=== PATIENT | female | born 1970 | race African-American/Black ===

== ENCOUNTER 2016-07-15 11:27 | Emergency (ER) | payer BC ==
[~2016-07-15] VITALS: Ht 154.9 cm; Wt 73.9 kg
[2016-07-15 11:56] VITALS: BP 129/84
--- NOTE | 2016-07-15 13:42 | RAD ---
Indication: Pain and tenderness to left shoulder. No known injury. Technique: 3 views of the left shoulder are submitted for review. No comparison is available. Findings: There is no fracture or dislocation. There is no osseous lesion. Impression: Negative for fracture.
[2016-07-15] MEDS ORDERED: METH-37 PO (14:23)
[2016-07-15] MEDS ORDERED: HYDR-971 PO (14:23)
--- NOTE | 2016-07-15 14:23 | PHYS DOC ---
Past Medical History Past Medical History: Asthma, GERD, IBS, Pneumonia, Other Additional Past Medical Histor: hypokalemia Past Surgical History: Cholecystectomy, Hysterectomy, Other Additional Past Surgical Histo: lt.acl,uterine ablation,ex-lap x2,lumpectomy Additional Information: nonsmoker Alcohol Use: Rarely Drug Use: None Adult General Chief Complaint Chief Complaint: SHOULDER INJURY HPI HPI Patient is a 45 year old female who presents with left shoulder pain for 2 weeks. Her pain started after leaning to the left side while sitting in the car for an extended period of time. She states the pain gets worse throughout the day, is worse at night, and is better in the morning. She has intermittent numbness and tingling in the fingers of the left hand. She denies any chest pain , shortness of breath, or neck pain. She has been taking Aleve without relief of her pain. She is right-hand dominant. Her PCP is Dr. Shannon Mills. Review of Systems Review of Systems Constitutional: Denies fever or chills. [] Respiratory: Denies cough or shortness of breath. [] Cardiovascular: Denies chest pain, palpitations or edema. [] Musculoskeletal: Denies back pain. Reports left shoulder pain. Integument: Denies rash or skin lesions. [] Neurologic: Denies headache, focal weakness. Reports intermittent paresthesias in the left hand. Allergies Allergies Allergies Coded Allergies Type Severity Reaction Last Updated Verified Iodinated Contrast Media - IV Dye Allergy Severe 01/17/14 Yes Sulfa (Sulfonamide Antibiotics) Allergy Severe 01/17/14 Yes shellfish derived Allergy Severe 01/17/14 Yes Erythromycin Base Allergy Intermediate 01/17/14 Yes Penicillins Allergy Intermediate 01/17/14 Yes cephalexin Allergy Intermediate 01/17/14 Yes latex Allergy Intermediate 01/17/14 Yes morphine Allergy Intermediate 01/17/14 Yes Physical Exam Physical Exam Constitutional: Well developed, well nourished, no acute distress, non-toxic appearance. [] HENT: Normocephalic, atraumatic, oropharynx moist. [] Eyes: PERRLA, EOMI, conjunctiva normal, no discharge. [] Neck: Normal range of motion, no tenderness, supple, no stridor. [] Cardiovascular: Heart rate regular rhythm, no murmur. [] Lungs & Thorax: Bilateral breath sounds clear to auscultation without wheezes, rales, or rhonchi. [] Skin: Warm, dry, no erythema, no rash. [] Back: No midline tenderness, no CVA tenderness. [] Extremities: Left A/C joint tenderness, decreased abduction of the left shoulder to 90 degrees, no edema. 2+ radial and ulnar pulses. Less than 2 second capillary refill in the fingers. Light touch sensation intact in the fingers. Equal equipment manager strength bilaterally. FROM without tenderness of the elbow, wrist, and hand. Neurologic: Alert and oriented X 3, normal motor function, normal sensory function, no focal deficits noted. [] Psychologic: Affect normal, judgement normal, mood normal. [] Current Patient Data Vital Signs Vital Signs Date Time Temp Pulse Resp B/P Pulse Ox O2 Delivery O2 Flow Rate FiO2 07/15/16 11:56 98 18 129/84 98 Room Air 98.0 EKG EKG [] Radiology/Procedures Radiology/Procedures REASON: tenderness over A/C joint PROCEDURE: SHOULDER 2+V LEFT Indication: Pain and tenderness to left shoulder. No known injury. Technique: 3 views of the left shoulder are submitted for review. No comparison is available. Findings: There is no fracture or dislocation. There is no osseous lesion. Impression: Negative for fracture. Course & Med Decision Making Course & Med Decision Making Pertinent Labs and Imaging studies reviewed. (See chart for details) Patient presents with left shoulder pain for 2 weeks. She does not have any chest pain or shortness of breath with the pain. Pain is worse with movement of the arm. On exam, she is tender over the A/C joint and has decreased range of motion. X-ray does not show any acute abnormalities. She is discharged home with prescription for [place] and Robaxin. She is given contact information for orthopedics for follow-up. Return precautions were discussed. She verbalizes understanding and agrees with plan. Dragon Disclaimer Dragon Disclaimer This electronic medical record was generated, in whole or in part, using a voice recognition dictation system. Departure Departure Impression: Primary Impression: Shoulder pain, left Disposition: 01 HOME, SELF-CARE Condition: STABLE Referrals: SHANNON MILLS DO (PCP) LUCIA DOHERTY MD Patient Instructions: Shoulder Pain, [id number] Additional Instructions: Your x-ray did not show any abnormalities. Please take the prescribed medications as directed. Do not drive or operate heavy machinery while taking these medications. Please follow-up with the orthopedic doctor listed below if your pain continues. Return to the emergency department if you have any new or concerning symptoms. Scripts Methocarbamol (Robaxin)500 Mg [id number] Mg PO QID #20 TAB Prov:DORA CAO 07/15/16 Hydrocodone/Apap 5-325 ([place] 5-325 Tablet)1 Each Tablet1 Tab PO PRN Q6HRS PRN PAIN #20 TAB Prov:DORA CAO 07/15/16 Problem Qualifiers Primary Impression: Shoulder pain, left Chronicity: acute Qualified Code: M25.512 - Pain in left shoulder DORA CAO Jul 15, 2016 14:23
== END 2016-07-15 14:30 | disposition home or self-care (01) ==
LOC: ER 11:27
DX: M25.512 Pain in left shoulder (principal); J45.909 Unspecified asthma, uncomplicated; Z88.0 Allergy status to penicillin; Z88.2 Allergy status to sulfonamides; Z88.1 Allergy status to other antibiotic agents; Z88.5 Allergy status to narcotic agent; Z91.041 Radiographic dye allergy status; Z91.040 Latex allergy status; Z91.013 Allergy to seafood
CPT/HCPCS: 73030; 99284

== ENCOUNTER 2017-04-01 11:00 | Emergency (ER) | payer BC ==
[~2017-04-01] VITALS: Ht 154.9 cm; Wt 71.7 kg
[~2017-04-01 11:00] MED LIST: HYDR-971 PO; METH-37 PO
[2017-04-01 11:33] LABS: BILIRUBIN,URINE NEGATIVE (NEG); GLUCOSE,URINE NEGATIVE (NEG); NITRITE,URINE NEGATIVE (NEG); PROTEIN,URINE 100 mg/dL (NEG-TRACE); UROBILINOGEN,URINE 0.2 mg/dL (0.2 mg/dL)
--- NOTE | 2017-04-01 11:37 | PHYS DOC ---
Past Medical History Past Medical History: Asthma, GERD, IBS, Pneumonia, Other Additional Past Medical Histor: hypokalemia Past Surgical History: Cholecystectomy, Hysterectomy, Other Additional Past Surgical Histo: lt.acl,uterine ablation,ex-lap x2,lumpectomy Alcohol Use: Rarely Drug Use: None Adult General Chief Complaint Chief Complaint: abdominal pain, nausea and vomiting HPI HPI Patient is a 46 year old female who presents with right-sided abdominal pain, intermittent in nature with nausea, vomiting, diarrhea for the last 2-1/2 weeks. Patient denies any known sick contacts, no fevers. Patient has a history of sphincter of OD dysfunction has had similar symptoms in the past. She contacted her GI doctor, Dr. Garduno recommended she come to the ER for evaluation. Patient's had a cholecystectomy. Her pain is well-controlled at this moment. Review of Systems Review of Systems Constitutional: Denies fever or chills [] Eyes: Denies change in visual acuity, redness, or eye pain [] HENT: Denies nasal congestion or sore throat [] Respiratory: Denies cough or shortness of breath [] Cardiovascular: Denies chest pain GI: Per history of present illness : Denies dysuria or hematuria [] Musculoskeletal: Denies back pain or joint pain [] Integument: Denies rash or skin lesions [] Neurologic: Denies headache, focal weakness or sensory changes [] Current Medications Current Medications Current Medications Medications (Trade) Dose Ordered Sig/Jessy Start Time Stop Time Status Last Admin Dose Admin Ondansetron HCl (Zofran) 4 mg 1X ONCE 04/01/17 11:45 04/01/17 11:46 DC 04/01/17 12:33 4 MG Potassium Chloride (Klor-Con) 40 meq 1X ONCE 04/01/17 12:15 04/01/17 12:17 DC 04/01/17 12:35 40 MEQ Sodium Chloride 1,000 ml @ 1,000 mls/hr 1X ONCE 04/01/17 11:45 04/01/17 12:44 DC 04/01/17 12:32 1,000 MLS/HR Allergies Allergies Allergies Coded Allergies Type Severity Reaction Last Updated Verified Iodinated Contrast- Oral and IV Dye Allergy Severe 04/01/17 Yes Sulfa (Sulfonamide Antibiotics) Allergy Severe 04/01/17 Yes shellfish derived Allergy Severe 04/01/17 Yes Penicillins Allergy Intermediate 04/01/17 Yes cephalexin Allergy Intermediate 04/01/17 Yes erythromycin base Allergy Intermediate 04/01/17 Yes latex Allergy Intermediate 04/01/17 Yes morphine Allergy Intermediate 04/01/17 Yes nitrofurantoin Allergy Unknown 04/01/17 No Physical Exam Physical Exam Constitutional: Well developed, well nourished, no acute distress, non-toxic appearance. [] HENT: Normocephalic, atraumatic, bilateral external ears normal, oropharynx moist, no oral exudates, nose normal. [] Eyes: PERRLA, EOMI, conjunctiva normal, no discharge. [] Neck: Normal range of motion, no tenderness, supple, no stridor. [] Cardiovascular:Heart rate tachy with regular rhythm, no murmur [] Lungs & Thorax: Bilateral breath sounds clear to auscultation [] Abdomen: Bowel sounds normal, soft, no tenderness, no masses, no pulsatile masses. no guarding or peritoneal signs, nondistended Skin: Warm, dry, no erythema, no rash. [] Back: No tenderness, no CVA tenderness. [] Extremities: No tenderness, no cyanosis, no clubbing, ROM intact, no edema. [] Neurologic: Alert and oriented X 3, normal motor function, normal sensory function, no focal deficits noted. [] Psychologic: Affect normal, judgement normal, mood normal. [] Current Patient Data Vital Signs Vital Signs Date Time Temp Pulse Resp B/P (MAP) Pulse Ox O2 Delivery O2 Flow Rate FiO2 04/01/17 13:10 104 20 114/74 (87) 98 Room Air 04/01/17 11:08 98.4 98.4 Lab Values Laboratory Tests Test 04/01/17 11:05 04/01/17 11:39 Urine Collection Type Void Urine Color Yellow Urine Clarity Cloudy Urine pH 6.0 Urine Specific [place] 1.015 Urine Protein 100 mg/dL (NEG-TRACE) Urine Glucose (UA) Negative mg/dL (NEG) Urine Ketones (Stick) Negative mg/dL (NEG) Urine Blood Trace (NEG) Urine Nitrite Negative (NEG) Urine Bilirubin Negative (NEG) Urine Urobilinogen Dipstick 0.2 mg/dL (0.2 mg/dL) Urine Leukocyte Esterase Moderate (NEG) Urine RBC Occ /HPF (0-2) Urine WBC 20-40 /HPF (0-4) Urine Squamous Epithelial Cells Few /LPF Urine Bacteria Few /HPF (0-FEW) Urine Hyaline Casts Occasional /HPF Urine Mucus Slight /LPF White Blood Count 10.6 x10^3/uL (4.0-11.0) Red Blood Count 4.27 x10^6/uL (3.50-5.40) Hemoglobin 12.9 g/dL (12.0-15.5) Hematocrit 37.3 % (36.0-47.0) Mean Corpuscular Volume 87 fL (79-100) Mean Corpuscular Hemoglobin 30 pg (25-35) Mean Corpuscular Hemoglobin Concent 35 g/dL (31-37) Red Cell Distribution Width 13.6 % (11.5-14.5) Platelet Count 467 x10^3/uL (140-400) H Neutrophils (%) (Auto) 59 % (31-73) Lymphocytes (%) (Auto) 33 % (24-48) Monocytes (%) (Auto) 6 % (0-9) Eosinophils (%) (Auto) 2 % (0-3) Basophils (%) (Auto) 1 % (0-3) Neutrophils # (Auto) 6.2 x10^3uL (1.8-7.7) Lymphocytes # (Auto) 3.5 x10^3/uL (1.0-4.8) Monocytes # (Auto) 0.6 x10^3/uL (0.0-1.1) Eosinophils # (Auto) 0.2 x10^3/uL (0.0-0.7) Basophils # (Auto) 0.1 x10^3/uL (0.0-0.2) Sodium Level 140 mmol/L (136-145) Potassium Level 2.8 mmol/L (3.5-5.1) *L Chloride Level 103 mmol/L (98-107) Carbon Dioxide Level 27 mmol/L (21-32) Anion Gap 10 (6-14) Blood Urea Nitrogen 5 mg/dL (7-20) L Creatinine 0.8 mg/dL (0.6-1.0) Estimated GFR (Cockcroft-Gault) 93.9 Glucose Level 98 mg/dL (70-99) Calcium Level 10.0 mg/dL (8.5-10.1) Total Bilirubin 0.3 mg/dL (0.2-1.0) Direct Bilirubin < 0.1 mg/dL (0.0-0.2) Aspartate Amino Transferase (AST) 27 U/L (15-37) Alanine Aminotransferase (ALT) 17 U/L (14-59) Alkaline Phosphatase 83 U/L (46-116) Total Protein 8.2 g/dL (6.4-8.2) Albumin 3.9 g/dL (3.4-5.0) Lipase 138 U/L (73-393) Laboratory Tests 04/01/17 11:39 Laboratory Tests 04/01/17 11:39 EKG EKG [] Radiology/Procedures Radiology/Procedures [] Course & Med Decision Making Course & Med Decision Making Pertinent Labs and Imaging studies reviewed. (See chart for details) Pt declined any pain medication at this moment. Patient was given IV fluids and Zofran while labs and urinalysis obtained. Pt feeling better, ok with plan to dc home. Given PO 40meq KCl in the ED. Has f/u scheduled with Dr. Garduno. Pt to take additional KCl tonight and tomorrow. Return precautions given, RX for zofran odt given. Dragon Disclaimer Dragon Disclaimer This electronic medical record was generated, in whole or in part, using a voice recognition dictation system. Departure Departure Impression: Primary Impression: Nausea & vomiting Disposition: 01 HOME, SELF-CARE Condition: IMPROVED Referrals: SHANNON MILLS DO (PCP) Scripts Ondansetron (ZOFRAN ODT) 4 Mg Tab.rapdis 1 TAB SL Q8HRS Y for NAUSEA, #10 TAB Prov: ALIDA GUALLPA MD 04/01/17 ALIDA GUALLPA MD Apr 01, 2017 11:37
[2017-04-01] MEDS ORDERED: ONDANSETRON PF 4 MG/2 ML VIAL. IV ONE (11:45)
[2017-04-01] MEDS ORDERED: IV NORMAL SALINE 1000ML BAG 1,000 ML IV ONE (11:45)
[2017-04-01 11:47] LABS: RBC,URINE OCC /HPF (0-2)
[2017-04-01 11:48] LABS: BACTERIA,URINE FEW /HPF (0-FEW); SQUAMOUS EPITHELIAL CELL,UR FEW /LPF; WBC,URINE 20-40 /HPF (0-4)
[2017-04-01 11:53] LABS: BASO # 0.1 x10^3/uL (0.0-0.2); BASO % 1 % (0-3); EOS % 2 % (0-3); HEMATOCRIT 37.3 % (36.0-47.0); HEMOGLOBIN 12.9 g/dL (12.0-15.5); LYMPH # 3.5 x10^3/uL (1.0-4.8); LYMPH % 33 % (24-48); MEAN CORPUSCULAR HEMOGLOBIN 30 pg (25-35); MEAN CORPUSCULAR HGB CONC 35 g/dL (31-37); MEAN CORPUSCULAR VOLUME 87 fL (79-100); MONO % 6 % (0-9); NEUT % 59 % (31-73); PLATELET COUNT 467 x10^3/uL (140-400); RED BLOOD COUNT 4.27 x10^6/uL (3.50-5.40); RED CELL DISTRIBUTION WIDTH 13.6 % (11.5-14.5); WHITE BLOOD COUNT 10.6 x10^3/uL (4.0-11.0)
[2017-04-01 12:09] LABS: ALBUMIN 3.9 g/dL (3.4-5.0); ALK PHOS 83 U/L (46-116); ALT (SGPT) 17 U/L (14-59); ANION GAP 10 (6-14); AST (SGOT) 27 U/L (15-37); BLOOD UREA NITROGEN 5 mg/dL (7-20); CARBON DIOXIDE 27 mmol/L (21-32); CHLORIDE 103 mmol/L (98-107); CREATININE 0.8 mg/dL (0.6-1.0); GFR 93.9; GLUCOSE 98 mg/dL (70-99); SODIUM 140 mmol/L (136-145); TOTAL BILIRUBIN 0.3 mg/dL (0.2-1.0); TOTAL PROTEIN 8.2 g/dL (6.4-8.2)
[2017-04-01 12:14] LABS: POTASSIUM 2.8 mmol/L (3.5-5.1)
[2017-04-01] MEDS ORDERED: POTASSIUM CHLORIDE 20 MEQ TABLET.ER. PO ONE (12:15)
[2017-04-01 12:22] LABS: DIRECT BILIRUBIN < 0.1 mg/dL (0.0-0.2)
[2017-04-01 13:10] VITALS: BP 114/74
[2017-04-01] MEDS ORDERED: ONDA4TAB10 SL (13:19)
== END 2017-04-01 13:30 | disposition home or self-care (01) ==
LOC: ER 11:00
DX: R11.2 Nausea with vomiting, unspecified (principal); R10.9 Unspecified abdominal pain; R19.7 Diarrhea, unspecified; J45.909 Unspecified asthma, uncomplicated; K21.9 Gastro-esophageal reflux disease without esophagitis; K58.0 Irritable bowel syndrome with diarrhea; Z90.49 Acquired absence of other specified parts of digestive tract; Z90.710 Acquired absence of both cervix and uterus; Z88.1 Allergy status to other antibiotic agents; Z91.041 Radiographic dye allergy status; Z91.040 Latex allergy status; Z88.5 Allergy status to narcotic agent; Z88.0 Allergy status to penicillin; Z91.013 Allergy to seafood; Z88.2 Allergy status to sulfonamides; Z88.8 Allergy status to other drugs, medicaments and biological substances
CPT/HCPCS: 36415; 80048; 80076; 81001; 83690; 85025; 87086; 96361; 96374; 99284; J2405; J7030; 87186

== ENCOUNTER 2017-04-06 09:26 | Emergency (ER) | payer BC ==
[~2017-04-06] VITALS: Ht 154.9 cm; Wt 71.2 kg
[~2017-04-06 09:26] MED LIST changes: +ONDA4TAB10 SL
[2017-04-06 09:34] VITALS: BP 129/87
[2017-04-06 09:56] LABS: BILIRUBIN,URINE NEGATIVE (NEG); GLUCOSE,URINE NEGATIVE (NEG); NITRITE,URINE NEGATIVE (NEG); PROTEIN,URINE 100 mg/dL (NEG-TRACE); UROBILINOGEN,URINE 0.2 mg/dL (0.2 mg/dL)
--- NOTE | 2017-04-06 10:10 | PHYS DOC ---
Past Medical History Past Medical History: Hypertension, UTI, Other Additional Past Medical Histor: GI ISSUES, HYPOKALEMIA Past Surgical History: Hysterectomy Additional Past Surgical Histo: L ACL,uterine ablation,ex-lap x2,lumpectomy, L SHOULDER Alcohol Use: None Drug Use: None Adult General Chief Complaint Chief Complaint: BLOOD IN URINE HPI HPI Patient is a 46 year old female presents to the ED complaining of dysuria x 2 days. States she started to have urinary frequency and then states it started to burn. Rates as 11/05. Associated symptoms include hematuria. Denies n/v, chills, abdominal pain, fever, weakness, dizziness, chest pain or shortness of breath. Review of Systems Review of Systems Constitutional: Denies fever or chills [] Eyes: Denies change in visual acuity, redness, or eye pain [] HENT: Denies nasal congestion or sore throat [] Respiratory: Denies cough or shortness of breath [] Cardiovascular: No additional information not addressed in HPI [] GI: Denies abdominal pain, nausea, vomiting, bloody stools or diarrhea [] : Complains of dysuria and hematuria. [] Musculoskeletal: Denies back pain or joint pain [] Integument: Denies rash or skin lesions [] Neurologic: Denies headache, focal weakness or sensory changes [] Endocrine: Denies polyuria or polydipsia [] All other systems were reviewed and found to be within normal limits, except as documented in this note. Allergies Allergies Allergies Coded Allergies Type Severity Reaction Last Updated Verified Iodinated Contrast- Oral and IV Dye Allergy Severe 04/01/17 Yes Sulfa (Sulfonamide Antibiotics) Allergy Severe 04/01/17 Yes shellfish derived Allergy Severe 04/01/17 Yes Penicillins Allergy Intermediate 04/01/17 Yes cephalexin Allergy Intermediate 04/01/17 Yes erythromycin base Allergy Intermediate 04/01/17 Yes latex Allergy Intermediate 04/01/17 Yes morphine Allergy Intermediate 04/01/17 Yes nitrofurantoin Allergy Unknown 04/01/17 No Physical Exam Physical Exam Constitutional: Well developed, well nourished, no acute distress, non-toxic appearance. [] HENT: Normocephalic, atraumatic, oropharynx moist, no oral exudates Cardiovascular:Heart rate regular rhythm, no murmur [] Lungs & Thorax: Bilateral breath sounds clear to auscultation [] Abdomen: Bowel sounds normal, soft, MILD SUPRAPUBIC ABDOMINAL TENDERNESS., no masses, no pulsatile masses. [] Skin: Warm, dry, no erythema, no rash. [] Back: No tenderness, no CVA tenderness. [] Neurologic: Alert and oriented X 3, normal motor function, normal sensory function, no focal deficits noted. [] Psychologic: Affect normal, judgement normal, mood normal. [] Current Patient Data Vital Signs Vital Signs Date Time Temp Pulse Resp B/P (MAP) Pulse Ox O2 Delivery O2 Flow Rate FiO2 04/06/17 09:34 98.3 104 12 97 Room Air 98.3 Lab Values Laboratory Tests Test 04/06/17 09:41 Urine Collection Type Void Urine Color Yellow Urine Clarity Cloudy Urine pH 6.0 Urine Specific [place] 1.010 Urine Protein 100 mg/dL (NEG-TRACE) Urine Glucose (UA) Negative mg/dL (NEG) Urine Ketones (Stick) Negative mg/dL (NEG) Urine Blood Large (NEG) Urine Nitrite Negative (NEG) Urine Bilirubin Negative (NEG) Urine Urobilinogen Dipstick 0.2 mg/dL (0.2 mg/dL) Urine Leukocyte Esterase Large (NEG) Urine RBC 6-10 /HPF (0-2) Urine WBC Tntc /HPF (0-4) Urine Squamous Epithelial Cells Occ /LPF Urine Bacteria 0 /HPF (0-FEW) EKG EKG [] Radiology/Procedures Radiology/Procedures [] Course & Med Decision Making Course & Med Decision Making Pertinent Labs and Imaging studies reviewed. (See chart for details) []Patient allergic to multiple antibiotics. Will treat for urinary tract infection with Levaquin. Patient states she has tolerated in the past without complications. Patient also prescribed Pyridium. Discussed follow-up with patient. Provided contact information/education. Discussed reasons to return to the ED. Patient understands and agrees with plan. Dragon Disclaimer Dragon Disclaimer This electronic medical record was generated, in whole or in part, using a voice recognition dictation system. Departure Departure Impression: Primary Impression: UTI (lower urinary tract infection) Disposition: 01 HOME, SELF-CARE Condition: IMPROVED Referrals: SHANNON MILLS DO (PCP) Patient Instructions: Urinary Tract Infection Scripts Phenazopyridine Hcl (PYRIDIUM) 100 Mg Tablet 100 MG PO TID, #20 TAB Prov: SYLVIA ROLLINS 04/06/17 Levofloxacin (LEVAQUIN) 750 Mg Tablet 1 TAB PO DAILY, #5 TAB Prov: SYLVIA ROLLINS 04/06/17 SYLVIA ROLLINS Apr 06, 2017 10:10
[2017-04-06 10:21] LABS: WBC,URINE TNTC /HPF (0-4)
[2017-04-06 10:22] LABS: BACTERIA,URINE 0 /HPF (0-FEW); SQUAMOUS EPITHELIAL CELL,UR OCC /LPF
[2017-04-06] MEDS ORDERED: LEVO750T31 PO (10:48)
[2017-04-06] MEDS ORDERED: PHEN100T82 PO (10:48)
== END 2017-04-06 11:05 | disposition home or self-care (01) ==
LOC: ER 09:26
DX: N39.0 Urinary tract infection, site not specified (principal); I10 Essential (primary) hypertension; Z90.710 Acquired absence of both cervix and uterus; Z88.2 Allergy status to sulfonamides; Z88.0 Allergy status to penicillin; Z88.1 Allergy status to other antibiotic agents; Z88.8 Allergy status to other drugs, medicaments and biological substances; Z91.041 Radiographic dye allergy status; Z91.040 Latex allergy status; Z91.013 Allergy to seafood
CPT/HCPCS: 81001; 99283

== ENCOUNTER 2020-02-26 17:10 | Emergency (ER) | payer BC ==
[~2020-02-26] VITALS: Ht 154.9 cm; Wt 75.9 kg
[~2020-02-26 17:10] MED LIST changes: +HYDR-3164 PO; -HYDR-971 PO; +LEVO750T31 PO; +PHEN100T82 PO
[2020-02-26 17:36] LABS: BILIRUBIN,URINE NEGATIVE (NEG); CLARITY,URINE CLEAR; COLOR,URINE YELLOW; NITRITE,URINE NEGATIVE (NEG); PROTEIN,URINE 30 mg/dL (NEG-TRACE); UROBILINOGEN,URINE 0.2 mg/dL (0.2 mg/dL)
[2020-02-26 17:47] LABS: BACTERIA,URINE FEW /HPF (0-FEW); RBC,URINE TNTC /HPF (0-2)
--- NOTE | 2020-02-26 19:01 | RAD ---
Exam: CT of abdomen and pelvis without contrast INDICATION: Hematuria TECHNIQUE: Sequential axial images through the abdomen and pelvis obtained without IV contrast. Sagittal and coronal reformatted images were reconstructed from the axial data and reviewed. Comparisons: 01/17/2014 FINDINGS: Heart size is normal. No pericardial effusion. Visualized lung bases are clear. No pleural effusion. Evaluation of solid organs is limited secondary to noncontrast technique. There is a vague hypoattenuating area anteriorly at the right hepatic dome adjacent to the falciform ligament measuring approximately 2.5 cm, stable from 2014. There is a small focus of air at the right hepatic lobe series 2 image 21, likely representing pneumobilia. Spleen, pancreas, and adrenals are unremarkable. Gallbladder is absent. Kidneys demonstrate symmetric enhancement. No perinephric inflammation or hydronephrosis. No renal or ureteral calculi are identified. Bladder is decompressed not well evaluated. Uterus is absent. No abnormal adnexal mass. Large and small bowel are unremarkable. Appendix is normal. No free intra-abdominal air or fluid. No obstruction. Abdominal aorta has a normal course and caliber. No enlarged abdominal lymph nodes are identified. No suspicious osseous lesions or acute fractures. IMPRESSION: 1. No renal or ureteral calculi. No evidence for obstructive uropathy. 2. Small focus of air at the liver as described above. Findings are favored represent a small focus of pneumobilia. Correlate for recent ERCP/procedure. Correlate with LFTs for cholangitis. Other differential considerations include a small amount of free air in the wilma hepatis, however no other secondary signs for perforation or free fluid is seen. Portal venous gas is considered unlikely, correlate with lactate levels. Exposure: One or more of the following in the visualized dose reduction techniques were utilized for this examination: 1. Automated exposure control 2. Adjustment of the MA and/or KV according to patient size 3. Use of iterative of reconstructive technique Electronically signed by: Aliya Gamino MD (02/26/2020 6:58 PM) [facility]
--- NOTE | 2020-02-26 19:12 | ED.ADGEN ---
Past Medical History Past Medical History: Asthma, GERD, Hypertension, UTI, Other Additional Past Medical Histor: GI ISSUES, HYPOKALEMIA, Sphincter of Ode Past Surgical History: Cholecystectomy, Hysterectomy, Tonsillectomy Additional Past Surgical Histo: L ACL,uterine ablation,ex-lap x2,lumpectomy, L SHOULDER, breast red,sinus Smoking Status: Never Smoker Alcohol Use: Rarely Drug Use: None General Adult EDM: Chief Complaint: ABNORMAL LABS HPI: HPI: Patient is a 49 year old female coming in with hematuria. Says she has had some dysuria today and suprapubic pain. Patient has a history of hysterectomy. Patient states she has been seen multiple times in the past for similar symptoms and diagnosed with a urinary tract infection. Denies any systemic complaints. Patient states her recurrent has been cola colored to bloody with small clots. Denies flank or back pain. Review of Systems: Review of Systems: Constitutional: Denies fever or chills. [] Eyes: Denies change in visual acuity. [] HENT: Denies nasal congestion or sore throat. [] Respiratory: Denies cough or shortness of breath. [] Cardiovascular: Denies chest pain or edema. [] GI: Denies abdominal pain, nausea, vomiting, bloody stools or diarrhea. [] : Denies dysuria. [] Musculoskeletal: Denies back pain or joint pain. [] Integument: Denies rash. [] Neurologic: Denies headache, focal weakness or sensory changes. [] Endocrine: Denies polyuria or polydipsia. [] Lymphatic: Denies swollen glands. [] Psychiatric: Denies depression or anxiety. [] Allergies: Allergies: Allergies Coded Allergies Type Severity Reaction Last Updated Verified Iodinated Contrast- Oral and IV Dye Allergy Severe 04/01/17 Yes Sulfa (Sulfonamide Antibiotics) Allergy Severe 04/01/17 Yes shellfish derived Allergy Severe 04/01/17 Yes Penicillins Allergy Intermediate 04/01/17 Yes cephalexin Allergy Intermediate 04/01/17 Yes erythromycin base Allergy Intermediate 04/01/17 Yes latex Allergy Intermediate 04/01/17 Yes morphine Allergy Intermediate 04/01/17 Yes nitrofurantoin Allergy Unknown 04/01/17 No Physical Exam: PE: Constitutional: Well developed, well nourished, no acute distress, non-toxic appearance. [] HENT: Normocephalic, atraumatic, bilateral external ears normal, oropharynx moist, no oral exudates, nose normal. [] Eyes: PERRLA, EOMI, conjunctiva normal, no discharge. [] Neck: Normal range of motion, no tenderness, supple, no stridor. [] Cardiovascular:Heart rate regular rhythm, no murmur [] Lungs & Thorax: Bilateral breath sounds clear to auscultation [] Abdomen: Bowel sounds normal, soft, no tenderness, no masses, no pulsatile masses. [] Skin: Warm, dry, no erythema, no rash. [] Back: No tenderness, no CVA tenderness. [] Extremities: No tenderness, no cyanosis, no clubbing, ROM intact, no edema. [] Neurologic: Alert and oriented X 3, normal motor function, normal sensory func tion, no focal deficits noted. [] Psychologic: Affect normal, judgement normal, mood normal. [] Current Patient Data: Labs: Laboratory Tests Test 02/26/20 17:20 02/26/20 20:00 Urine Collection Type Void Urine Color Yellow Urine Clarity Clear Urine pH 6.0 (<5.0-8.0) Urine Specific Fenton <=1.005 (1.000-1.030) Urine Protein 30 mg/dL (NEG-TRACE) Urine Glucose (UA) Negative mg/dL (NEG) Urine Ketones (Stick) Negative mg/dL (NEG) Urine Blood Large (NEG) Urine Nitrite Negative (NEG) Urine Bilirubin Negative (NEG) Urine Urobilinogen Dipstick 0.2 mg/dL (0.2 mg/dL) Urine Leukocyte Esterase Trace (NEG) Urine RBC Tntc /HPF (0-2) Urine WBC 1-4 /HPF (0-4) Urine Squamous Epithelial Cells Occ /LPF Urine Bacteria Few /HPF (0-FEW) White Blood Count 11.0 x10^3/uL (4.0-11.0) Red Blood Count 4.06 x10^6/uL (3.50-5.40) Hemoglobin 12.2 g/dL (12.0-15.5) Hematocrit 35.4 % (36.0-47.0) L Mean Corpuscular Volume 87 fL (79-100) Mean Corpuscular Hemoglobin 30 pg (25-35) Mean Corpuscular Hemoglobin Concent 34 g/dL (31-37) Red Cell Distribution Width 14.0 % (11.5-14.5) Platelet Count 483 x10^3/uL (140-400) H Neutrophils (%) (Auto) 50 % (31-73) Lymphocytes (%) (Auto) 41 % (24-48) Monocytes (%) (Auto) 6 % (0-9) Eosinophils (%) (Auto) 2 % (0-3) Basophils (%) (Auto) 1 % (0-3) Neutrophils # (Auto) 5.5 x10^3/uL (1.8-7.7) Lymphocytes # (Auto) 4.5 x10^3/uL (1.0-4.8) Monocytes # (Auto) 0.7 x10^3/uL (0.0-1.1) Eosinophils # (Auto) 0.2 x10^3/uL (0.0-0.7) Basophils # (Auto) 0.1 x10^3/uL (0.0-0.2) Sodium Level 145 mmol/L (136-145) Potassium Level 2.8 mmol/L (3.5-5.1) *L Chloride Level 104 mmol/L (98-107) Carbon Dioxide Level 28 mmol/L (21-32) Anion Gap 13 (6-14) Blood Urea Nitrogen 7 mg/dL (7-20) Creatinine 0.8 mg/dL (0.6-1.0) Estimated GFR (Cockcroft-Gault) 92.6 BUN/Creatinine Ratio 9 (6-20) Glucose Level 102 mg/dL (70-99) H Calcium Level 9.1 mg/dL (8.5-10.1) Total Bilirubin 0.2 mg/dL (0.2-1.0) Direct Bilirubin 0.1 mg/dL (0.0-0.2) Aspartate Amino Transferase (AST) 15 U/L (15-37) Alanine Aminotransferase (ALT) 18 U/L (14-59) Alkaline Phosphatase 89 U/L (46-116) Total Protein 7.4 g/dL (6.4-8.2) Albumin 3.8 g/dL (3.4-5.0) Albumin/Globulin Ratio 1.1 (1.0-1.7) Lipase 126 U/L (73-393) Laboratory Tests 02/26/20 20:00 Laboratory Tests 02/26/20 20:00 Vital Signs: Vital Signs Date Time Temp Pulse Resp B/P (MAP) Pulse Ox O2 Delivery O2 Flow Rate FiO2 02/26/20 20:29 92 17 114/76 (89) Room Air 02/26/20 18:59 96 02/26/20 17:30 98.6 98.6 EKG: EKG: [] Heart Score: Risk Factors: Risk Factors: DM, Current or recent (<one month) smoker, HTN, HLP, family history of CAD, obesity. Risk Scores: Score 0 - 3: 2.5% MACE over next 6 weeks - Discharge Home Score 4 - 6: 20.3% MACE over next 6 weeks - Admit for Clinical Observation Score 7 - 10: 72.7% MACE over next 6 weeks - Early Invasive Strategies Radiology/Procedures: Radiology/Procedures: PROCEDURE: CT ABDOMEN PELVIS WO CONTRAST Exam: CT of abdomen and pelvis without contrast INDICATION: Hematuria TECHNIQUE: Sequential axial images through the abdomen and pelvis obtained without IV contrast. Sagittal and coronal reformatted images were reconstructed from the axial data and reviewed. Comparisons: 01/17/2014 FINDINGS: Heart size is normal. No pericardial effusion. Visualized lung bases are clear. No pleural effusion. Evaluation of solid organs is limited secondary to noncontrast technique. There is a vague hypoattenuating area anteriorly at the right hepatic dome adjacent to the falciform ligament measuring approximately 2.5 cm, stable from 2013. There is a small focus of air at the right hepatic lobe series 2 image 21, likely representing pneumobilia. Spleen, pancreas, and adrenals are unremarkable. Gallbladder is absent. Kidneys demonstrate symmetric enhancement. No perinephric inflammation or hydronephrosis. No renal or ureteral calculi are identified. Bladder is decompressed not well evaluated. Uterus is absent. No abnormal adnexal mass. Large and small bowel are unremarkable. Appendix is normal. No free intra-abdominal air or fluid. No obstruction. Abdominal aorta has a normal course and caliber. No enlarged abdominal lymph nodes are identified. No suspicious osseous lesions or acute fractures. IMPRESSION: 1. No renal or ureteral calculi. No evidence for obstructive uropathy. 2. Small focus of air at the liver as described above. Findings are favored represent a small focus of pneumobilia. Correlate for recent ERCP/procedure. Correlate with LFTs for cholangitis. Other differential considerations include a small amount of free air in the wilma hepatis, however no other secondary signs for perforation or free fluid is seen. Portal venous gas is considered unlikely, correlate with lactate levels. [] Course & Med Decision Making: Course & Med Decision Making Pertinent Labs and Imaging studies reviewed. (See chart for details) Does not patient increasing potassium will give Zofran, since patient has been vomiting and states she has not felt to keep her medications down. Is taking hydrochlorothiazide, discussed talking to her doctor about adding spironola ctone. [] Dragon Disclaimer: Dragon Disclaimer: This electronic medical record was generated, in whole or in part, using a voice recognition dictation system. Departure Departure Impression: Primary Impression: UTI (urinary tract infection) Additional Impression: Hypokalemia Disposition: 01 DC HOME SELF CARE/HOMELESS Condition: STABLE Referrals: SHANNON MILLS DO (PCP) Patient Instructions: Urinary Tract Infection Additional Instructions: Increase potassium to 100 mEq a day. Take antibiotics as prescribed. Follow-up with primary care to recheck potassium and discuss starting spironolactone for hyperkalemia. Scripts Ciprofloxacin Hcl (CIPRO) 250 Mg Tablet 1 TAB PO BID for 5 Days, #10 TAB 0 Refills Prov: BENJAMIN BANKS MD 02/26/20 Ondansetron Hcl (ZOFRAN) 4 Mg Tablet 1 TAB PO PRN Q6-8HRS for nausea, #12 TAB Prov: BENJAMIN BANKS MD 02/26/20 Problem Qualifiers BENJAMIN BANKS MD Feb 26, 2020 19:12
[2020-02-26 20:11] LABS: BASO # 0.1 x10^3/uL (0.0-0.2); BASO % 1 % (0-3); EOS # 0.2 x10^3/uL (0.0-0.7); EOS % 2 % (0-3); HEMATOCRIT 35.4 % (36.0-47.0); HEMOGLOBIN 12.2 g/dL (12.0-15.5); LYMPH # 4.5 x10^3/uL (1.0-4.8); LYMPH % 41 % (24-48); MEAN CORPUSCULAR HEMOGLOBIN 30 pg (25-35); MEAN CORPUSCULAR HGB CONC 34 g/dL (31-37); MEAN CORPUSCULAR VOLUME 87 fL (79-100); MONO # 0.7 x10^3/uL (0.0-1.1); MONO % 6 % (0-9); NEUT # 5.5 x10^3/uL (1.8-7.7); NEUT % 50 % (31-73); PLATELET COUNT 483 x10^3/uL (140-400); RED BLOOD COUNT 4.06 x10^6/uL (3.50-5.40)
[2020-02-26 20:36] LABS: ALBUMIN 3.8 g/dL (3.4-5.0); ALBUMIN/GLOBULIN RATIO 1.1 (1.0-1.7); CALCIUM 9.1 mg/dL (8.5-10.1); CREATININE 0.8 mg/dL (0.6-1.0); DIRECT BILIRUBIN 0.1 mg/dL (0.0-0.2); GFR 92.6; TOTAL BILIRUBIN 0.2 mg/dL (0.2-1.0); TOTAL PROTEIN 7.4 g/dL (6.4-8.2)
[2020-02-26 20:45] LABS: POTASSIUM 2.8 mmol/L (3.5-5.1)
[2020-02-26] MEDS ORDERED: ONDA4TAB7 PO (21:24)
[2020-02-26] MEDS ORDERED: CIPR250T30 PO (21:24)
[2020-02-26] MEDS ORDERED: CIPROFLOXACIN HCL 250 MG TABLET. PO ONE (21:30)
[2020-02-26] MEDS ORDERED: ONDANSETRON ODT 4 MG TAB.RAPDIS. PO ONE (21:30)
[2020-02-26] MEDS ORDERED: POTASSIUM CHLORIDE 20 MEQ TABLET.ER. PO ONE (21:30)
[2020-02-26 21:33] VITALS: BP 124/60
== END 2020-02-26 21:38 | disposition home or self-care (01) ==
LOC: ER 17:10
DX: N39.0 Urinary tract infection, site not specified (principal); R31.9 Hematuria, unspecified; E87.6 Hypokalemia; R10.2 Pelvic and perineal pain; J45.909 Unspecified asthma, uncomplicated; K21.9 Gastro-esophageal reflux disease without esophagitis; I10 Essential (primary) hypertension; Z90.710 Acquired absence of both cervix and uterus; Z90.49 Acquired absence of other specified parts of digestive tract; Z98.890 Other specified postprocedural states; Z90.89 Acquired absence of other organs; Z91.040 Latex allergy status; Z91.013 Allergy to seafood; Z88.2 Allergy status to sulfonamides; Z88.0 Allergy status to penicillin; Z88.1 Allergy status to other antibiotic agents; Z88.6 Allergy status to analgesic agent
CPT/HCPCS: 36415; 74176; 80053; 81001; 82248; 83690; 85025; 87086; 99285